=== PATIENT | male | born 1965 | race Caucasian/White ===

== ENCOUNTER 2024-08-12 19:00 | Emergency (ER) | payer SELFPAY ==
[2024-08-12 19:04] VITALS: BP 137/101
[2024-08-12 19:25] LABS: Urine Albumin Negative (Neg - Trace); Urine Bilirubin Negative (Negative); Urine Character Clear (Clear); Urine Color Yellow; Urine Glucose Negative (Negative); Urine Ketone Negative (Negative); Urine Leukocyte Negative (Negative); Urine Nitrite Negative (Negative); Urine Occult Blood Negative (Negative); Urine Urobilinogen Negative (Neg - 1+)
[2024-08-12 19:26] LABS: % Basophils 0.6 % (0-2); % Eosinophils 3.2 % (0-6); % Immature Granulocytes 0.5 % (0-0.5); % Lymphocytes 28.1 % (20.5-51.1); % Monocytes 8.3 % (1.7-9.3); % Neutrophils 59.3 % (42.2-75.2); Absolute Basophils 0.1 10^3/uL (0-0.2); Absolute Eosinophils 0.4 10^3/uL (0-0.7); Absolute Immature Granulocytes 0.1 10^3/uL (0-0.05); Absolute Lymphocytes 3.5 10^3/uL (1.2-3.4); Absolute Neutrophils 7.4 10^3/uL (1.4-6.5); Hematocrit 46.4 % (39.0-52.0); Hemoglobin 16.2 g/dL (13.0-18.0); Mean Corp Hgb Conc. 34.9 g/dL (33.0-37.0); Mean Platelet Volume 10.7 fL (7.4-10.4); Nucleated Red Blood Cells % 0 % (-); Platelet Count 291 10^3/uL (130-400); Red Blood Cell Count 5.59 10^6/uL (4.70-6.10); Red Cell Dist. Width 13.8 % (11.5-14.5); White Blood Cell Count 12.5 10^3/uL (4.8-10.8)
[2024-08-12 19:46] LABS: ALT (SGPT) 32 U/L (0-50); AST (SGOT) 31 U/L (17-59); Albumin 4.7 g/dl (3.5-5.0); Alkaline Phosphatase 67 U/L (38-126); Blood Urea Nitrogen 18 mg/dl (9-20); Calcium 9.7 mg/dl (8.4-10.2); Carbon Dioxide 24 mmol/L (22-30); Chloride 109 mmol/L (98-107); Glucose 102 mg/dl (70-99); Potassium 4.6 mmol/L (3.5-5.1); Sodium 139 mmol/L (135-145); Total Bilirubin 0.7 mg/dl (0.2-1.3); Total Protein 7.7 g/dl (6.3-8.2); eGFR > 60.00
[2024-08-12 19:47] LABS: Lipase 566 U/L (23-300)
[2024-08-12 19:50] LABS: Troponin I < 0.012 ng/ml
[2024-08-12 21:28] VITALS: BP 120/77
[2024-08-12 21:29] VITALS: BMI 33.2
--- NOTE | 2024-08-12 21:38 | ED.GENMED ---
History of Present Illness
General
Chief Complaint: Abdominal Pain
Source: patient
Exam Limitations: none
Time Seen by Provider: 08/12/24 21:30
Nursing documentation reviewed up to this point in time: agreed with
History of Present Illness
History of Present Illness:
This is a 59-year-old male with no past medical history presents emergency department today with concerns of left-sided lower chest wall pain for the past 3 days. Patient reports that when it first started, he was not doing anything and he was
sitting on the couch. He notes that the pain has been constant and this concerned him. Patient has no personal history of cardiac disease. He also noted that at times he felt like he had intermittent palpitations as well as intermittent episodes
of lightheadedness. Currently he feels no palpitations. He also states that he has had intermittent shortness of breath he feels like his chest pain gets worse with deep inspiration. He denies any recent long distance travel. He denies any pain
in his lower extremities or swelling. 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 He does have a history of early cardiac disease in his mom. He has no history of hypertension or
hyperlipidemia. He does smoke cigarettes daily. He has not drink any alcohol. He denies any fevers or chills, nausea or vomiting, diarrhea or constipation.
Past History
Past History
ED Past Medical History: Psychiatric (Anxiety)
ED Past Surgical History: Orthopedic
Social History
Tobacco: Smoker
Alcohol: Occasional
Drug: None
Personal:
Living: with family
Review of Systems
Review of Systems
All Other Systems: ROS reviewed and negative except as documented in HPI and ROS
Phy Exam
Physical Exam
Physical Exam:
General: Patient is well appearing and in no acute distress; non-toxic
Skin: Warm and dry, no rashes or lesions
Head: Normocephalic, atraumatic
Eyes: Sclera non-icteric. EOMs intact.
Cardiac: Regular rate and rhythm, no murmurs, tenderness palpation of the left lower chest wall, pain with flexion and extension of left shoulder
Peripheral Vascular: No lower extremity swelling or edema
Pulm: Normal respiratory effort, no wheezes, rales, or rhonchi
Abdomen: No abdominal tenderness to palpation
Neuro: CN II-XII intact, no focal neurologic deficits.
Psychiatric: Appropriate mood and affect.
Course
Orders/Labs/Results
Orders:
Orders
08/12/24 19:02
Electrocardiogram (*1) Urgent
Reason for Study: Abdominal Pain
EKG- Treatment ONCE
08/12/24 19:15
Complete Blood Count/With Diff Urgent
Comprehensive Metabolic Panel Urgent
Lipase Urgent
Magnesium Urgent
Comment: ADD ON
TSH Reflex To Free T4 Urgent
Comment: ADD ON
Troponin I Urgent
08/12/24 19:16
Urinalysis Reflex To Culture Urgent
Date Specimen was Collected: 08/12/24
Time Specimen was Collected: 19:02
08/12/24 23:03
Add On- LAB Urgent
Tests Added?: magnesium, tsh reflex to t4
08/13/24 00:00
CT Chest PE Study Urgent
Reason For Exam: left sided rib pain, sob, dizziness
08/13/24 01:08
Ketorolac [Toradol] 15 mg IV NOW STA
Abnormal Lab Results
08/12/24
19:15
WBC 12.5 H 10^3/uL
(4.8-10.8)
MPV 10.7 H fL
(7.4-10.4)
Abs Immat Gran (auto) 0.1 H 10^3/uL
(0-0.05)
Absolute Neuts (auto) 7.4 H 10^3/uL
(1.4-6.5)
Absolute Lymphs (auto) 3.5 H 10^3/uL
(1.2-3.4)
Absolute Monos (auto) 1.0 H 10^3/uL
(0.1-0.6)
Chloride 109 H mmol/L
(98-107)
Glucose 102 H mg/dl
(70-99)
Lipase 566 H U/L
(23-300)
08/12/24 19:15
08/12/24 19:15
Vital Signs
Initial and Last Documented VS:
Initial Vital Signs
Temp Pulse Resp BP Pulse Ox
98.5 F 112 20 137/101 98
08/12/24 19:04 08/12/24 19:04 08/12/24 19:04 08/12/24 19:04 08/12/24 19:04
Last Documented Vital Signs
Temp Pulse Resp BP Pulse Ox
98.5 F 80 29 136/89 94
08/12/24 19:04 08/12/24 23:45 08/12/24 23:45 08/13/24 01:18 08/13/24 01:18
MDM/Problems Addressed
Differential Diagnosis Includes:
ddx include ACS, PE, costochondritis, musculoskeletal sprain/strain
MDM/Problems Addressed:
This is a 59-year-old male with no past medical history presents emergency department today with concerns of left-sided lower chest wall pain for the past 3 days. He denies inciting injury. On PE, he is well appearing, in no acute distress. His
chest wall is significantly tender to palpation seems to be worse with ROM of the left shoulder and worse after position changes in CT scan. Did improve with toradol. Suspect musculoskeletal etiology in light of undetectable troponin, non-ischemic
ecg, normal CT of the chest. Did note granuloma which patient is aware of. Considering patient's family history and daily smoking, did discharge patient with chest pain hot line. Patient also had palpitations earlier no evidence of arrhythmia on
telemetry did recommend cards for Holter monitoring, close return precautions discussed. Patient stable for discharge. Labs reviewed did note elevation in lipase pt has no epigastic pain no abdominal pain recommended repeat with primary care
provider.
*Pulse Oximetry
Patient hypoxic: no
*Critical Care Note
Total Time (30-74mins, 75-104mins- exclusive of procedures): Not Applicable
Data Reviewed
Review of Other/Old Records Reveals: Records (reviewed prior discharge from 11/21/12 pt seen for chest pain)
Source: patient and records
ED Attending Note
-
Portions of this chart may have been created with voice recognition software.� Occasional wrong word or��sound alike� substitutions may have occurred due to the inherent limitations of voice recognition software.
Discharge Plan
Departure
Patient Disposition: Home (Routine Discharge)
Date of Disposition: 08/13/24
Time of Disposition: 02:12
Patient with high blood pressure during this ER visit?: Yes
Condition: Good
Discharge Problem:
Chest pain
Instructions: Chest Pain DCA Follow Up, BLOOD PRESSURE
Prescriptions:
No Action
lorazepam 1 MG tablet
1 mg PO DAILY
tramadol 50 MG tablet
50 mg PO Q6HPRN PRN (Reason: Pain) Qty: 10 0RF
diazepam 5 MG tablet
5 mg PO TIDPRN PRN (Reason: Pain, MS) Qty: 10 0RF
Referrals:
Malachi James MD [Active] - Call in 1-3 days for appt
Erick Frazier MD [Active] - Call in 1-3 days for appt
Saud Manrique MD [Family Provider] -
Activity Restrictions/Additional Instructions:
Please schedule appointment to primary care provider. Please have your lipase level repeated in 1 to 2 weeks. A granuloma was noted on your CAT scan. Please follow-up with your primary care provider. I did also attached the number for
pulmonology.
Please call the attached number to schedule appointment to see cardiology in follow-up.
You may need Holter monitoring for further evaluation of your symptoms.
PLEASE RETURN EMERGENCY DEPARTMENT SHOULD YOU DEVELOP CHEST PAIN, SHORTNESS OF BREATH, ACUTE WORSENING OR SYMPTOMS, NAUSEA OR VOMITING, DIZZINESS OR LIGHTHEADEDNESS, FAINTING SPELLS, HEADACHES, FEVERS OR CHILLS, OR ANY OTHER SIGNS OR SYMPTOMS
WORRISOME TO YOU.
Interventions
Interventions:
*Risk Screen - Suicide Last Done: 08/12/24 19:04
*General Assessment Last Done: 08/12/24 21:29
*Neglect/Abuse Screening Last Done: 08/12/24 19:04
*ED- Fall Risk Assessment Last Done: 08/12/24 19:04
*ED COVID-19 Vaccine History Last Done: 08/12/24 21:29
*Nursing Disposition Last Done: 08/13/24 02:28
EF-Xrzpvi-Cvsaaxmxbd Assessment Last Done: 08/12/24 21:20
Discharge Date and Time
Discharge Date/Time: 08/13/24 02:29
Print Language: LATVIAN
[2024-08-12 22:00] VITALS: BP 112/83
[2024-08-12 23:00] VITALS: BP 124/77
[2024-08-12 23:24] LABS: Magnesium 1.9 mg/dl (1.6-2.3)
[2024-08-13] MEDS: TORADOL 15 MG IV (01:13)
[2024-08-13 01:18] VITALS: BP 136/89
== END 2024-08-13 02:29 | disposition home or self-care (01) ==
LOC: EMR 19:00
PROVIDERS: Student in an Organized Health Care Education/Training Program; EMERGENCY PHYSICIAN Student in an Organized Health Care Education/Training Program; FAMILY PHYSICIAN Family Medicine
DX: R07.89 Other chest pain (principal); R42 Dizziness and giddiness; R06.02 Shortness of breath; R00.2 Palpitations; R03.0 Elevated blood-pressure reading, without diagnosis of hypertension; F41.9 Anxiety disorder, unspecified; F17.210 Nicotine dependence, cigarettes, uncomplicated; Z82.49 Family history of ischemic heart disease and other diseases of the circulatory system
CPT/HCPCS: 99284; 96374; 71275; 80053; 81003; 83690; 83735; 84443; 84484; 85025; 93005; Q9967